=== PATIENT | female | born 1990 | race Caucasian/White ===

== ENCOUNTER 2022-06-24 10:32 | Emergency (ER) | payer SELFPAY ==
[2022-06-24 10:58] VITALS: BP 122/65; PULSE 83
[2022-06-24 11:52] LABS: CARBON DIOXIDE,CO2 23.6 mmol/L (21.0-32.0); POTASSIUM,K 3.6 mmol/L (3.5-5.1)
[2022-06-24] MEDS ORDERED: Cephalexin 500 MG Cap PO ONE (12:18)
== END 2022-06-24 14:11 | disposition home or self-care (01) ==
LOC: MW.ED 10:32
DX: O41.8X2 Other specified disorders of amniotic fluid and membranes, second trimester (principal); O23.42 Unspecified infection of urinary tract in pregnancy, second trimester; Z3A.17 17 weeks gestation of pregnancy; Z79.899 Other long term (current) drug therapy
CPT/HCPCS: 36415; 76815; 80053; 81001; 84702; 85025; 99284; A9270

== ENCOUNTER 2022-11-13 20:48 | Inpatient (IN) | payer OTHER ==
[2022-11-13] MEDS: Lactated Ringers 1,000 ML IV SCH ×2 (21:40→22:41)
[2022-11-13] MEDS ORDERED: Methylergonovine 0.2 MG/1 ML Amp IM PRN (21:48)
[2022-11-13] MEDS ORDERED: Water For Irrigation,Sterile 1,000 ML Container IRR PRN (21:48)
[2022-11-13] MEDS ORDERED: Sodium Chloride 0.9% 20 ML SDV IV PRN (21:48)
[2022-11-13] MEDS ORDERED: Misoprostol 200 MCG Tab PO PRN (21:48)
[2022-11-13] MEDS ORDERED: Butorphanol 1 MG/ML SDV IVPUSH PRN (21:48)
[2022-11-13] MEDS ORDERED: Sodium Chloride 0.9% 2.5 ML Syringe FLUSH PRN (21:48)
[2022-11-13] MEDS ORDERED: Tranexamic Acid 1,000 MG in Sodium Chloride 0.9% 100 ML IV PRN (21:48)
[2022-11-13] MEDS ORDERED: Carboprost Tromethamine 250 MCG/1 ML Amp IM PRN (21:48)
[2022-11-13] MEDS ORDERED: Lidocaine 1% 50 ML MDV INJECT PRN (21:48)
[2022-11-13] MEDS ORDERED: Sodium Chloride 0.9% 10 ML Syringe FLUSH PRN (21:48)
[2022-11-13] MEDS ORDERED: Oxytocin/0.9 % Sodium Chloride 30 UNIT/500 ML BAG IV SCH ×2 (22:00→23:00)
[2022-11-13] MEDS ORDERED: Ropivacaine/PF 400 MG/200 ML PCA ONE (22:02)
[2022-11-13] MEDS ORDERED: ePHEDrine 50 MG/ML SDV IVPUSH PRN ×2 (22:12)
[2022-11-13] MEDS ORDERED: Phenylephrine HCl In 0.9% NaCl 1 MG/10 ML Vial IVPUSH PRN (22:12)
[2022-11-13] MEDS ORDERED: Phenylephrine HCl In 0.9% NaCl 1 MG/10 ML Vial IVPUSH SCH (22:15)
[2022-11-13] MEDS ORDERED: Ropivacaine HCl/PF 400 MG in Premix Bag 1 BAG EPIDUR SCH (22:15)
[2022-11-13] MEDS ORDERED: Terbutaline 1 MG/ML SDV SUBCUT PRN (22:49)
[2022-11-13] MEDS ORDERED: Witch Hazel Medicated Pads 40/Jar TOP PRN (23:20)
[2022-11-13] MEDS ORDERED: Lanolin 100% Cream 7 GM Tube TOP PRN (23:20)
[2022-11-13] MEDS ORDERED: Docusate Sodium 100 MG Cap PO PRN (23:20)
[2022-11-13] MEDS ORDERED: Acetaminophen 500 MG Tab PO PRN (23:20)
[2022-11-13] MEDS ORDERED: Ibuprofen 400 MG Tab PO PRN (23:20)
[2022-11-13] MEDS ORDERED: Benzocaine/Menthol 20%-0.5% Spray 78 GM Cannister TOP PRN (23:20)
[2022-11-13] MEDS ORDERED: Bisacodyl 10 MG Supp RECTAL PRN (23:20)
[2022-11-13] MEDS ORDERED: oxyCODONE 5 MG Tab PO PRN (23:20)
[2022-11-14] MEDS: Acetaminophen 500 MG Tab PO PRN (06:42)
[2022-11-14] MEDS: Ibuprofen 800 MG Tab PO PRN ×2 (12:19→19:58)
[2022-11-15] MEDS: Acetaminophen 500 MG Tab PO PRN (04:36)
[2022-11-15 08:42] VITALS: BP 104/70; PULSE 63
== END 2022-11-15 14:50 | disposition home or self-care (01) | DRG 807 ==
LOC: MW.OB 20:48 → MW.OBCHECK 20:48 → MW.OB 21:48 → OBSVTOIN 11-14 01:43 → MW.OB 11-14 04:01
PROVIDERS: ADMIT Obstetrics & Gynecology; ATTEND Obstetrics & Gynecology Obstetrics
PROC: 10E0XZZ Delivery of Products of Conception, External Approach (ICD-10-PCS; principal; 2022-11-14)
PROC: 10907ZC Drainage of Amniotic Fluid, Therapeutic from Products of Conception, Via Natural or Artificial Opening (ICD-10-PCS; 2022-11-14)
PROC: 3E0R3BZ Introduction of Anesthetic Agent into Spinal Canal, Percutaneous Approach (ICD-10-PCS; 2022-11-14)
PROC: 00HU33Z Insertion of Infusion Device into Spinal Canal, Percutaneous Approach (ICD-10-PCS; 2022-11-14)
DX: O30.003 Twin pregnancy, unspecified number of placenta and unspecified number of amniotic sacs, third trimester (principal); Z37.2 Twins, both liveborn; Z3A.37 37 weeks gestation of pregnancy
CPT/HCPCS: 36415; 51702; 59025; 59409; 85014; 85018; 85027; 86592; 86850; 86900; 86901; 87653; A9270-GY; J2795; J7120; U0002

== ENCOUNTER 2024-06-28 07:54 | Emergency (ER) | payer OTHER ==
[2024-06-28 08:09] VITALS: BP 107/72; PULSE 79
[2024-06-28] MEDS: Sodium Chloride 0.9% 10 ML Syringe FLUSH PRN (08:27)
[2024-06-28] MEDS: Sodium Chloride 0.9% 2.5 ML Syringe FLUSH PRN (08:27)
[2024-06-28 08:33] LABS: APPEARANCE,URINE CLEAR; BASOPHILS ABSOLUTE AUTO 0.02 K/uL (0.00-0.20); BASOPHILS PERCENT AUTO 0.2 % (0.0-1.0); BILIRUBIN,URINE NEGATIVE (NEGATIVE); COLOR,URINE YELLOW; EOSINOPHILS ABSOLUTE AUTO 0.23 K/uL (0.00-0.45); EOSINOPHILS PERCENT AUTO 2.7 % (0.0-6.0); GLUCOSE,URINE NEGATIVE (NEGATIVE); HEMATOCRIT 39.4 % (37.0-47.0); HEMOGLOBIN 13.5 g/dL (12.0-16.0); IMMATURE GRAN ABSOLUTE AUTO 0.02 K/uL (0.00-0.05); IMMATURE GRAN PERCENT AUTO 0.2 % (0.0-0.4); KETONES,URINE 15 mg/dL (NEGATIVE); LEUKOCYTE ESTERASE,URINE NEGATIVE (NEGATIVE); LYMPHOCYTES ABSOLUTE AUTO 1.55 K/uL (1.00-4.80); LYMPHOCYTES PERCENT AUTO 18.3 % (24.0-44.0); MEAN CORPUSCULAR HEMOGLOBIN 29.9 pg (28.0-32.0); MEAN CORPUSCULAR HGB CONC 34.3 g/dL (32.0-36.0); MEAN CORPUSCULAR VOLUME 87.2 fL (83.0-99.0); MEAN PLATELET VOLUME 9.1 fL (9.4-12.3); MONOCYTES ABSOLUTE AUTO 0.76 K/uL (0.00-0.80); NEUTROPHILS ABSOLUTE AUTO 5.87 K/uL (1.80-7.70); NEUTROPHILS PERCENT AUTO 69.6 % (41.0-71.0); NITRITE,URINE NEGATIVE (NEGATIVE); OCCULT BLOOD,URINE TRACE-INTACT (NEGATIVE); PLATELET COUNT,PLT 238 K/uL (150-400); PROTEIN,URINE NEGATIVE (NEGATIVE); RED BLOOD CELL COUNT 4.52 M/uL (4.10-5.30); UROBILINOGEN,URINE 0.2 EU/dL (<2.0); WHITE BLOOD CELL COUNT,WBC 8.45 K/uL (3.9-11.3)
[2024-06-28 08:41] LABS: BACTERIA,URINE FEW (NEGATIVE); EPITHELIAL CELLS,URINE FEW (NONE-FEW); RBC,URINE 0-2 (0-2/HPF); WBC,URINE 0-3 (0-5/HPF)
[2024-06-28 09:00] LABS: A/G RATIO 1.3 (0.9-1.6); BILIRUBIN TOTAL 1.4 mg/dL (0.2-1.0); CALCIUM 8.8 mg/dL (8.5-10.1); CARBON DIOXIDE,CO2 24.3 mmol/L (21.0-32.0); CREATININE 0.7 mg/dL (0.6-1.0); EST CRCL DRUG DOSING (CG) 104.01 mL/min; POTASSIUM,K 3.9 mmol/L (3.5-5.1); PROTEIN TOTAL,TP 7.1 g/dL (6.4-8.2)
[2024-06-28] MEDS: Iopamidol 755 MG/ML 500 ML Multipack Bottle IVPUSH STA (09:36)
== END 2024-06-28 11:16 | disposition home or self-care (01) ==
LOC: MW.ED 07:54
DX: N83.202 Unspecified ovarian cyst, left side (principal)
CPT/HCPCS: 36415; 74177; 76857; 80053; 81001; 81025; 83690; 85025; 99284; J3490; Q9967